=== PATIENT | female | born 1985 | race Caucasian/White ===

== ENCOUNTER 2018-06-24 18:17 | Emergency (ER) | payer OTHER ==
[~2018-06-24] VITALS: Ht 170.2 cm; Wt 69.4 kg
[2018-06-24] MEDS ORDERED: ADDERALL 10 MG10 MG PO (18:36)
[2018-06-24] MEDS ORDERED: LEXAPRO 10 MG T10 M2 PO (18:36)
[2018-06-24 18:52] LABS: URINE BILIRUBIN NEGATIVE (Negative); URINE BLOOD 3+ (Negative); URINE CLARITY CLOUDY; URINE COLOR RED; URINE GLUCOSE-RANDOM NEGATIVE (Negative); URINE KETONES 1+ (Negative); URINE LEUKOCYTES-REFLEX NEGATIVE (Negative); URINE NITRITE-REFLEX NEGATIVE (Negative); URINE PROTEIN 3+ (Negative); URINE SPECIFIC GRAVITY 1.025 (1.005-1.030); URINE UROBILINOGEN 0.2 E.U./dl (0.2-1.0)
[2018-06-24 19:03] LABS: CASTS None Seen /LPF (None Seen); CRYSTALS None Seen /LPF (None Seen); MUCUS None Seen strn/LPF (None Seen); SQUAMOUS 4-10 Moderate /LPF (0-3); URINE RBC >20 Many /HPF (0-2); URINE WBC-REFLEX 6-15 Few /HPF (0-5)
[2018-06-24 19:13] LABS: ABSOLUTE BASOPHILS 0.1 thou/uL (0.0-0.2); ABSOLUTE LYMPHOCYTES 1.2 thou/uL (0.8-5.3); ABSOLUTE MONOCYTES 0.6 thou/uL (0.0-1.2); ABSOLUTE NEUTROPHILS 10.2 thou/uL (1.6-8.1); BASOPHILS 0.5 %; EOSINOPHILS 0.1 %; HEMATOCRIT 41.3 % (37.0-47.0); HEMOGLOBIN 13.8 gm/dL (12.0-15.0); LYMPHOCYTES 10.1 %; MCH 29.2 pg (26.0-34.0); MCHC 33.5 g/dL (28.0-37.0); MCV 87.2 fL (80.0-100.0); MONOCYTES 5.3 %; MPV 10.1 fl. (7.2-11.1); NUCLEATED RBCS 0 /100WBC; PLATELET COUNT* 203 thou/uL (150-400); RBC 4.74 mil/uL (4.20-5.00); RDW-CV 13.9 % (10.5-14.5); WBC 12.2 thou/uL (4.0-11.0)
[2018-06-24 19:24] LABS: ALBUMIN 4.1 g/dL (3.4-5.0); CALCIUM 8.8 mg/dL (8.5-10.1); CREATININE 0.8 mg/dL (0.6-1.3); POTASSIUM 3.4 mmol/L (3.5-5.1); TOTAL BILIRUBIN 0.7 mg/dL (<0.1-1.0); TOTAL PROTEIN 7.5 g/dL (6.4-8.2)
[2018-06-24 19:43] LABS: APTT 24.2 Seconds (25.0-31.3); PROTIME 10.5 Seconds (9.20-11.50)
[2018-06-24 19:48] LABS: AMP/METHAMP POSITIVE (Negative); BARBITURATES Negative (Negative); BENZODIAZEPINES Negative (Negative); COCAINE Negative (Negative); METHADONE Negative (Negative); OPIATES Negative (Negative); PCP Negative (Negative); THC Negative (Negative)
[2018-06-24] MEDS ORDERED: BACTRIM DS TAB1 EACH PO (20:07)
[2018-06-24 20:21] VITALS: BP 128/80
== END 2018-06-24 20:22 | disposition home or self-care (01) ==
LOC: M.ERS 18:17
PROVIDERS: Physician Assistant
DX: N39.0 Urinary tract infection, site not specified (principal); R31.9 Hematuria, unspecified; R80.9 Proteinuria, unspecified; E07.9 Disorder of thyroid, unspecified

== ENCOUNTER 2018-11-19 22:28 | Emergency (ER) | payer OTHER ==
[~2018-11-19] VITALS: Ht 170.2 cm; Wt 68.0 kg
[~2018-11-19 22:28] MED LIST: ADDERALL 10 MG10 MG PO; BACTRIM DS TAB1 EACH PO; LEXAPRO 10 MG T10 M2 PO
[2018-11-19] MEDS ORDERED: KEFLEX500 M1 PO (23:22)
[2018-11-19 23:30] VITALS: BP 117/67
== END 2018-11-19 23:30 | disposition home or self-care (01) ==
LOC: M.ERS 22:28
DX: R59.1 Generalized enlarged lymph nodes (principal); E03.9 Hypothyroidism, unspecified; Z98.51 Tubal ligation status

== ENCOUNTER 2021-02-19 21:03 | Emergency (ER) | payer OTHER ==
[~2021-02-19] VITALS: Ht 167.6 cm; Wt 74.8 kg
[~2021-02-19 21:03] MED LIST changes: +KEFLEX500 M1 PO
[2021-02-19] MEDS ORDERED: XANAX1 MG PO (21:14)
[2021-02-19 21:32] LABS: URINE BILIRUBIN NEGATIVE (Negative); URINE BLOOD 3+ (Negative); URINE CLARITY CLOUDY; URINE COLOR RED; URINE GLUCOSE-RANDOM NEGATIVE (Negative); URINE KETONES TRACE (Negative); URINE LEUKOCYTES-REFLEX NEGATIVE (Negative); URINE NITRITE-REFLEX NEGATIVE (Negative); URINE PROTEIN 3+ (Negative); URINE SPECIFIC GRAVITY >= 1.030 (1.005-1.030); URINE UROBILINOGEN 0.2 E.U./dl (0.2-1.0)
[2021-02-19 21:39] LABS: URINE WBC-REFLEX 6-15 Few /HPF (0-5)
[2021-02-19 21:40] LABS: BACTERIA-REFLEX 1-9 Few /HPF (None Seen); CASTS None Seen /LPF (None Seen); CRYSTALS None Seen /LPF (None Seen); MUCUS None Seen strn/LPF (None Seen); SQUAMOUS 0-3 Few /LPF (0-3); URINE RBC >20 Many /HPF (0-2); YEAST-REFLEX Present (None Seen)
[2021-02-19] MEDS ORDERED: MACROBID 100 M100 M1 PO (21:51)
[2021-02-19] MEDS ORDERED: PYRIDIUM200 MG PO (21:51)
[2021-02-19] MEDS ORDERED: DIFLUCAN150 MG PO (21:58)
[2021-02-19 22:00] VITALS: BP 142/87
== END 2021-02-19 22:01 | disposition home or self-care (01) ==
LOC: M.ERS 21:03
PROVIDERS: Physician Assistant
DX: R31.9 Hematuria, unspecified (principal); N39.0 Urinary tract infection, site not specified; Z98.51 Tubal ligation status; Z79.899 Other long term (current) drug therapy